=== PATIENT | female | born 1990 | race African-American/Black ===

== ENCOUNTER 2017-07-13 14:33 | Emergency (ER) | payer SELFPAY ==
[~2017-07-13] VITALS: Ht 162.6 cm; Wt 60.0 kg
[2017-07-13 14:45] VITALS: BP 122/79; PULSE 100; RESP 16; TEMP 98.9; O2SAT 100
--- NOTE | 2017-07-13 16:25 | PD ---
HPI . Paranoia Chief Complaint: Psychiatric Symptoms Time Seen by Provider: 16:11 Travel History International Travel<30 days: No Contact w/Intl Traveler<30days: No Traveled to known affect area: No History of Present Illness HPI This patient is brought to us by a police liaison with chief complaint of paranoia and hallucinations. She also states that she feels very anxious. She believes that people are following her. In addition, she is complaining with some right-sided abdominal pain which has been present for over 2 months. She reports poor appetite. She denies any urinary tract symptoms. She states that she has not been recently sexually active. She is unaware of any modifying factors. Symptoms are moderate. She denies any previous psychiatric history. [facility] Past Medical History Diminished Hearing: No ?: Not LMP: 06/2017 : 1 Para: 0 Miscarriage: 0 : 0 Ovarian Cysts: Yes Social History Alcohol Use: No Tobacco Use: No Substance Use: No Allergies-Medications (Allergen,Severity, Reaction): Coded Allergies: Fish Containing Products (Unverified Allergy, Unknown, Swelling, 07/13/17) Reported Meds & Prescriptions Reported Meds & Active Scripts Active No Active Prescriptions or Reported Medications Review of Systems Except as stated in HPI: all other systems reviewed are Neg General / Constitutional: Positive: Fever Gastrointestinal: Positive: Abdominal Pain Genitourinary: No: Urgency, Frequency, Dysuria Psychiatric: Positive: Anxiety, Disorder of Thought Physical Exam Narrative GENERAL: Awake and alert and in no acute distress. SKIN: warm/dry. Normal color. HEAD: Normocephalic. Atraumatic. EYES: Pupils equal and round. No scleral icterus. No injection or drainage. ENT: No nasal bleeding or discharge. Mucous membranes pink and moist. NECK: Trachea midline. Full range of motion without pain.. CARDIOVASCULAR: Regular rate and rhythm. Heart sounds are normal. RESPIRATORY: No accessory muscle use. Clear to auscultation. Breath sounds equal bilaterally. GASTROINTESTINAL: Abdomen soft. Positive right lower quadrant tenderness bowel sounds present. Nondistended. No CVA tenderness. MUSCULOSKELETAL: No obvious deformities. NEUROLOGICAL: Awake and alert. No obvious cranial nerve deficits. Motor grossly within normal limits. Normal speech. PSYCHIATRIC: Appropriate mood and affect; insight and judgment normal. Data Data Last Documented VS Vital Signs Date Time Temp Pulse Resp B/P (MAP) Pulse Ox O2 Delivery O2 Flow Rate FiO2 3/29/18 14:45 98.9 100 16 122/79 (93) 100 Orders Orders Complete Blood Count With Diff (07/13/17 16:17) Comprehensive Metabolic Panel (07/13/17 16:17) Thyroid Stimulating Hormone (07/13/17 16:17) Urinalysis - C+S If Indicated (07/13/17 16:17) Ed Urine Pregnancytest Poc (07/13/17 16:17) Psych Screen (07/13/17 16:17) Drug Screen, Random Urine (07/13/17 16:17) Ct Abd/Pel W/O Iv Contrast (07/13/17 16:17) MDM Medical Decision Making Medical Screen Exam Complete: Yes Emergency Medical Condition: Yes Differential Diagnosis Differential diagnosis of abdominal pain includes but is not limited to gastritis, pancreatitis, hepatitis, gastroenteritis, constipation, urinary retention, peptic ulcer disease, diverticulitis or appendicitis Differential diagnosis of psychosis includes but is not limited to schizophrenia , schizoaffective disorder, bipolar disorder, intoxication, substance abuse, dementia Narrative Course This patient is brought to us by police liaison for paranoia, anxiety and hallucinations. The police liaison did not take out a Grimaldo Act. Medical clearance exam has been initiated. In addition, the patient is complaining with some right lower quadrant abdominal pain. So, in addition to the usual medical clearance exam, I have ordered a test, urinalysis and CT of her abdomen and pelvis. The patient is being signed out to the oncoming provider at 5 PM. Diagnosis Primary Impression: Medical clearance for psychiatric admission Additional Impression: Abdominal pain Qualified Codes: R10.31 - Right lower quadrant pain Scripts No Active Prescriptions or Reported Meds Condition: Polly Orelalna MD Jul 13, 2017 16:25
[2017-07-13 17:27] LABS: AUTOMATED NEUTROPHIL # 3.2 TH/MM3 (1.8-7.7); BASOPHIL % 0.7 % (0.0-2.0); EOSINOPHIL # 0.1 TH/MM3 (0-0.4); EOSINOPHIL % 0.9 % (0.0-4.0); HEMOGLOBIN 14.2 GM/DL (11.6-15.3); LYMPH % 45.3 % (9.0-44.0); MEAN CELL VOLUME 93.6 FL (80.0-100.0); MEAN CORPUSCULAR HEMOGLOBIN 31.6 PG (27.0-34.0); MEAN CORPUSCULAR HGB CONC 33.7 % (32.0-36.0); MONO % 4.6 % (0.0-8.0); MONOCYTE # 0.3 TH/MM3 (0-0.9); NEUT % 48.5 % (16.0-70.0); PLATELET COUNT 49 TH/MM3 (150-450); RED BLOOD COUNT 4.49 MIL/MM3 (4.00-5.30); RED CELL DISTRIBUTION WIDTH 13.8 % (11.6-17.2); WHITE BLOOD COUNT 6.6 TH/MM3 (4.0-11.0)
[2017-07-13 17:30] LABS: BILIRUBIN, URINE NEG (NEG); BLOOD, URINE NEG (NEG); GLUCOSE,URINE NEG (NEG); KETONE, URINE NEG (NEG); MUCUS URINE FEW /lpf (OCC); NITRITE,URINE NEG (NEG); PH, URINE 6.5 (5.0-8.5); SQUAMOUS EPITHELIAL CELL URINE 2 /hpf (0-5); URINE COLOR YELLOW (YELLW/STRAW); URINE LEUKOCYTE ESTERASE NEG (NEG)
[2017-07-13 17:40] LABS: ALT (GPT) 15 U/L (10-53)
[2017-07-13 17:49] LABS: ALKALINE PHOSPHATASE 47 U/L (45-117); TOTAL BILIRUBIN ADULT 0.2 MG/DL (0.2-1.0); TOTAL PROTEIN 7.8 GM/DL (6.4-8.2)
[2017-07-13 17:58] LABS: ALBUMIN 3.8 GM/DL (3.4-5.0); AST (GOT) 27 U/L (15-37); BICARBONATE 25.1 MEQ/L (21.0-32.0); BLOOD UREA NITROGEN 10 MG/DL (7-18); CHLORIDE 105 MEQ/L (98-107); CREATININE 0.85 MG/DL (0.50-1.00); GLOMERULAR FILTRATION RATE 96 ML/MIN (>89); GLUCOSE,RANDOM 88 MG/DL (74-106); SODIUM (NA) 140 MEQ/L (136-145)
--- NOTE | 2017-07-13 18:12 | RADRPT ---
EXAM DATE/TIME: 07/13/2017 17:42 [facility] COMPARISON: No previous studies available for comparison. INDICATIONS : RLQ pain x 1 month . ORAL CONTRAST: No oral contrast ingested. RADIATION DOSE: 5.07 CTDIvol (mGy) MEDICAL HISTORY : None SURGICAL HISTORY : None. ENCOUNTER: Initial ACUITY: 1 month PAIN SCALE: 6/10 LOCATION: Right lower quadrant TECHNIQUE: Volumetric scanning of the abdomen and pelvis was performed. Using automated exposure control and ad justment of the mA and/or kV according to patient size, radiation dose was kept as low as reasonably achievable to obtain optimal diagnostic quality images. DICOM format image data is available electro nically for review and comparison. FINDINGS: No oral or intervenous contrast was given for this study. LOWER LUNGS: The visualized lower lungs are clear. LIVER: Homogeneous density without lesion. There is no dilation of the biliary tree. No calcified gallston es. SPLEEN: Normal size without lesion. PANCREAS: Within normal limits. KIDNEYS: Normal in size and shape. There is no mass, stone, or hydronephrosis. ADRENAL GLANDS: Within normal limits. VASCULAR: There is no aortic aneurysm. BOWEL/MESENTERY: The stomach, small bowel, and colon demonstrate no acute abnormality. There is no free intraperitone al air or fluid. The appendix is not seen. Inflammatory change is not seen. ABDOMINAL WALL: Within normal limits. RETROPERITONEUM: There is no lymphadenopathy. BLADDER: No wall thickening or mass. REPRODUCTIVE: Within normal limits. INGUINAL: There is no lymphadenopathy or hernia. MUSCULOSKELETAL: Within normal limits for patient age. CONCLUSION: No acute disease. Deandre Rojas MD on July 13, 2017 at 18:08 Board Certified Radiologist. This report was verified electronically.
--- NOTE | 2017-07-13 18:28 | PD ---
Physical Exam Date Seen by Provider: Jul 13, 2017 Time Seen by Provider: 18:26 Narrative 26-year-old female came to the emergency room as a Grimaldo act. Patient was seen by the previous ER physician. Please refer to her history and physical for further details. Sign out was to follow-up on blood test results and CAT scan. Patient had a bizarre behavior. Vital signs were stable. Blood test results of back and patient has thrombocytopenia but otherwise the test results are within normal limits. Urine drug screen is positive for marijuana. Head CT is unremarkable. Patient will be medically cleared and will require psych screen. Data Data Last Documented VS Vital Signs Date Time Temp Pulse Resp B/P (MAP) Pulse Ox O2 Delivery O2 Flow Rate FiO2 07/14/17 09:44 07/14/17 06:53 99.0 77 17 99 Room Air Orders Orders Complete Blood Count With Diff (07/13/17 16:17) Comprehensive Metabolic Panel (07/13/17 16:17) Thyroid Stimulating Hormone (07/13/17 16:17) Urinalysis - C+S If Indicated (07/13/17 16:17) Ed Urine Pregnancytest Poc (07/13/17 16:17) Psych Screen (07/13/17 16:17) Drug Screen, Random Urine (07/13/17 16:17) Ct Abd/Pel W/O Iv Contrast (07/13/17 16:17) Diet Regular Basic (07/14/17 Breakfast) Ed Discharge Order (07/14/17 08:46) Labs Laboratory Tests Test 07/13/17 16:40 07/13/17 16:55 Urine Color YELLOW Urine Turbidity CLEAR Urine pH 6.5 Urine Specific [place] 1.024 Urine Protein TRACE mg/dL Urine Glucose (UA) NEG mg/dL Urine Ketones NEG mg/dL Urine Occult Blood NEG Urine Nitrite NEG Urine Bilirubin NEG Urine Urobilinogen 2.0 MG/DL Urine Leukocyte Esterase NEG Urine WBC 2 /hpf Urine Squamous Epithelial Cells 2 /hpf Urine Mucus FEW /lpf Microscopic Urinalysis Comment CULT NOT INDICATED Urine Opiates Screen NEG Urine Barbiturates Screen NEG Urine Amphetamines Screen NEG Urine Benzodiazepines Screen NEG Urine Cocaine Screen NEG Urine Cannabinoids Screen POS White Blood Count 6.6 TH/MM3 Red Blood Count 4.49 MIL/MM3 Hemoglobin 14.2 GM/DL Hematocrit 42.0 % Mean Corpuscular Volume 93.6 FL Mean Corpuscular Hemoglobin 31.6 PG Mean Corpuscular Hemoglobin Concent 33.7 % Red Cell Distribution Width 13.8 % Platelet Count 49 TH/MM3 Mean Platelet Volume 9.0 FL Neutrophils (%) (Auto) 48.5 % Lymphocytes (%) (Auto) 45.3 % Monocytes (%) (Auto) 4.6 % Eosinophils (%) (Auto) 0.9 % Basophils (%) (Auto) 0.7 % Neutrophils # (Auto) 3.2 TH/MM3 Lymphocytes # (Auto) 3.0 TH/MM3 Monocytes # (Auto) 0.3 TH/MM3 Eosinophils # (Auto) 0.1 TH/MM3 Basophils # (Auto) 0.0 TH/MM3 CBC Comment AUTO DIFF Differential Comment AUTO DIFF CONFIRMED Platelet Estimate LOW Platelet Morphology Comment NORMAL Blood Urea Nitrogen 10 MG/DL Creatinine 0.85 MG/DL Random Glucose 88 MG/DL Total Protein 7.8 GM/DL Albumin 3.8 GM/DL Calcium Level 9.0 MG/DL Alkaline Phosphatase 47 U/L Aspartate Amino Transf (AST/SGOT) 27 U/L Alanine Aminotransferase (ALT/SGPT) 15 U/L Total Bilirubin 0.2 MG/DL Sodium Level 140 MEQ/L Potassium Level 4.7 MEQ/L Chloride Level 105 MEQ/L Carbon Dioxide Level 25.1 MEQ/L Anion Gap 10 MEQ/L Estimat Glomerular Filtration Rate 96 ML/MIN Thyroid Stimulating Hormone 3rd Gen 1.050 uIU/ML MDM Supervised Visit with HOSSEIN: No Diagnosis Primary Impression: Medical clearance for psychiatric admission Additional Impressions: Abdominal pain Qualified Codes: R10.31 - Right lower quadrant pain Thrombocytopenia Scripts No Active Prescriptions or Reported Meds Condition: Stable Deysi Engel MD Jul 13, 2017 18:28
[2017-07-13 19:16] VITALS: BP 119/78; PULSE 91; RESP 16; O2SAT 100
[2017-07-14 00:08] VITALS: BP 95/65; PULSE 82; RESP 18; O2SAT 100
[2017-07-14 06:53] VITALS: BP 113/77; PULSE 77; RESP 17; TEMP 99; O2SAT 99
--- NOTE | 2017-07-14 08:46 | PD ---
Physical Exam Date Seen by Provider: Jul 14, 2017 Time Seen by Provider: 08:45 Narrative 26-year-old female previously medically clear for psychiatric evaluation has been seen by psychiatric staff and deemed stable for discharge, with follow-up at [facility]. Please see psychiatric note for follow-up. Patient remains medically stable for discharge at this time. Data Data Last Documented VS Vital Signs Date Time Temp Pulse Resp B/P (MAP) Pulse Ox O2 Delivery O2 Flow Rate FiO2 07/14/17 06:53 99.0 77 17 113/77 (89) 99 Room Air Orders Orders Complete Blood Count With Diff (07/13/17 16:17) Comprehensive Metabolic Panel (07/13/17 16:17) Thyroid Stimulating Hormone (07/13/17 16:17) Urinalysis - C+S If Indicated (07/13/17 16:17) Ed Urine Pregnancytest Poc (07/13/17 16:17) Psych Screen (07/13/17 16:17) Drug Screen, Random Urine (07/13/17 16:17) Ct Abd/Pel W/O Iv Contrast (07/13/17 16:17) Diet Regular Basic (07/14/17 Breakfast) Labs Laboratory Tests Test 07/13/17 16:40 07/13/17 16:55 Urine Color YELLOW Urine Turbidity CLEAR Urine pH 6.5 Urine Specific [place] 1.024 Urine Protein TRACE mg/dL Urine Glucose (UA) NEG mg/dL Urine Ketones NEG mg/dL Urine Occult Blood NEG Urine Nitrite NEG Urine Bilirubin NEG Urine Urobilinogen 2.0 MG/DL Urine Leukocyte Esterase NEG Urine WBC 2 /hpf Urine Squamous Epithelial Cells 2 /hpf Urine Mucus FEW /lpf Microscopic Urinalysis Comment CULT NOT INDICATED Urine Opiates Screen NEG Urine Barbiturates Screen NEG Urine Amphetamines Screen NEG Urine Benzodiazepines Screen NEG Urine Cocaine Screen NEG Urine Cannabinoids Screen POS White Blood Count 6.6 TH/MM3 Red Blood Count 4.49 MIL/MM3 Hemoglobin 14.2 GM/DL Hematocrit 42.0 % Mean Corpuscular Volume 93.6 FL Mean Corpuscular Hemoglobin 31.6 PG Mean Corpuscular Hemoglobin Concent 33.7 % Red Cell Distribution Width 13.8 % Platelet Count 49 TH/MM3 Mean Platelet Volume 9.0 FL Neutrophils (%) (Auto) 48.5 % Lymphocytes (%) (Auto) 45.3 % Monocytes (%) (Auto) 4.6 % Eosinophils (%) (Auto) 0.9 % Basophils (%) (Auto) 0.7 % Neutrophils # (Auto) 3.2 TH/MM3 Lymphocytes # (Auto) 3.0 TH/MM3 Monocytes # (Auto) 0.3 TH/MM3 Eosinophils # (Auto) 0.1 TH/MM3 Basophils # (Auto) 0.0 TH/MM3 CBC Comment AUTO DIFF Differential Comment AUTO DIFF CONFIRMED Platelet Estimate LOW Platelet Morphology Comment NORMAL Blood Urea Nitrogen 10 MG/DL Creatinine 0.85 MG/DL Random Glucose 88 MG/DL Total Protein 7.8 GM/DL Albumin 3.8 GM/DL Calcium Level 9.0 MG/DL Alkaline Phosphatase 47 U/L Aspartate Amino Transf (AST/SGOT) 27 U/L Alanine Aminotransferase (ALT/SGPT) 15 U/L Total Bilirubin 0.2 MG/DL Sodium Level 140 MEQ/L Potassium Level 4.7 MEQ/L Chloride Level 105 MEQ/L Carbon Dioxide Level 25.1 MEQ/L Anion Gap 10 MEQ/L Estimat Glomerular Filtration Rate 96 ML/MIN Thyroid Stimulating Hormone 3rd Gen 1.050 uIU/ML MDM Medical Record Reviewed: Yes Supervised Visit with HOSSEIN: Yes Narrative Course 26-year-old female previously medically clear for psychiatric evaluation has been seen by psychiatric staff and deemed stable for discharge, with follow-up at [facility]. Please see psychiatric note for follow-up. Patient remains medically stable for discharge at this time. Diagnosis Primary Impression: Medical clearance for psychiatric admission Additional Impressions: Thrombocytopenia Abdominal pain Qualified Codes: R10.31 - Right lower quadrant pain Referrals: [facility] (Out patient) Patient Instructions: General Instructions Scripts No Active Prescriptions or Reported Meds Disposition: 01 DISCHARGE HOME Condition: Stable Vahe John Jul 14, 2017 08:46
== END 2017-07-14 10:21 | disposition home or self-care (01) ==
LOC: NEPD 14:33 → NEPJ 07-14 10:21
DX: Z04.6 Encounter for general psychiatric examination, requested by authority (principal); R10.31 Right lower quadrant pain; D69.6 Thrombocytopenia, unspecified; F22 Delusional disorders; R44.3 Hallucinations, unspecified; F41.9 Anxiety disorder, unspecified
CPT/HCPCS: 74176; 80053; 80307; 81001; 84443; 84703; 85025; 99283